=== PATIENT | female | born 1955 | race Native Hawaiian/Other Pacific Islander ===

== ENCOUNTER 2018-02-13 16:00 | Outpatient (CLI) | payer OTHER ==
[2018-02-13 16:29] LABS: POTASSIUM 3.7 mmol/L (3.6-5.2)
[2018-02-13 16:43] LABS: PLATELET COUNT 202 K/uL (152-353)
== END 2018-02-13 22:33 | disposition home or self-care (01) ==
LOC: LABW 16:00
PROVIDERS: Nurse Practitioner Family
DX: R22.0 Localized swelling, mass and lump, head (principal)
CPT/HCPCS: 36415; 80053; 85027; Q9963